=== PATIENT | male | born 1955 | race Caucasian/White ===

== ENCOUNTER 2019-08-01 06:12 | Day surgery (SDC) | payer OTHER ==
[~2019-08-01] VITALS: Ht 160 cm; Wt 75.0 kg
[~2019-08-01 06:12] MED LIST: SODIUM CHLORIDE 0.9% 1,000 ML ONE
[2019-08-01] MEDS ORDERED: ALBUTEROL SULFATE 2.5 MG/0.5 ML NEB SOLUTION NEB ONE (06:13)
[2019-08-01] MEDS ORDERED: LIDOCAINE 4% 50 ML SOLUTION TP ONE (06:13)
[2019-08-01] MEDS ORDERED: LIDOCAINE 2% 30 ML JELLY TP ONE (06:13)
[2019-08-01] MEDS ORDERED: BENZOCAINE 20% 50 MCG/SPRAY 57 GM TP ONE (06:13)
[2019-08-01] MEDS ORDERED: SODIUM CHLORIDE 0.9% 1,000 ML IV ONE (06:30)
[2019-08-01] MEDS ORDERED: TRIA15CR49 TP (06:40)
[2019-08-01] MEDS ORDERED: TROS20TA3 PO (06:40)
[2019-08-01] MEDS ORDERED: OMEP20 PO (06:40)
[2019-08-01] MEDS ORDERED: ATOR10TA84 PO (06:40)
[2019-08-01] MEDS ORDERED: PRED10 PO (06:40)
[2019-08-01] MEDS ORDERED: LOSA50TA37 PO (06:40)
[2019-08-01] MEDS ORDERED: DOCU-275 PO (06:40)
[2019-08-01] MEDS ORDERED: PROCTOCM TP (06:40)
[2019-08-01] MEDS ORDERED: MONT10TA21 PO (06:40)
[2019-08-01] MEDS ORDERED: AMLO-258 PO (06:40)
[2019-08-01] MEDS ORDERED: SUCR1TAB28 PO (06:40)
[2019-08-01] MEDS ORDERED: [UNRECOGNIZED DRUG - CODE] TP (06:40)
[2019-08-01] MEDS ORDERED: FAMO20 PO (06:40)
[2019-08-01] MEDS ORDERED: BECL10.62 IH (06:40)
[2019-08-01] MEDS ORDERED: MIDAZOLAM HCL 2 MG/2 ML VIAL ONE (07:34)
[2019-08-01] MEDS ORDERED: FentaNYL CITRATE-PF 100 MCG/2 ML VIAL ONE (07:34)
[2019-08-01] MEDS ORDERED: MethylPREDNISolone SOD SUCC 125 MG/2 ML VIAL ONE (09:15)
[2019-08-01] MEDS ORDERED: MethylPREDNISolone SOD SUCC 125 MG/2 ML VIAL IVP ONE (09:15)
[2019-08-01] MEDS ORDERED: OXYGEN THERAPY IH SCH (20:00)
== END 2019-08-01 10:40 | disposition home or self-care (01) ==
LOC: SURGERY 06:12
PROVIDERS: ATTEND Internal Medicine Critical Care Medicine
DX: R05 Cough (principal); R04.2 Hemoptysis; J84.9 Interstitial pulmonary disease, unspecified; I10 Essential (primary) hypertension; K21.9 Gastro-esophageal reflux disease without esophagitis; Z11.59 Encounter for screening for other viral diseases; E78.00 Pure hypercholesterolemia, unspecified; N40.0 Benign prostatic hyperplasia without lower urinary tract symptoms; Z79.899 Other long term (current) drug therapy; Z98.52 Vasectomy status
CPT/HCPCS: 31623; 31624; 71045; 87015; 87070; 87101; 87205; 87206; 87220; 87635; 88108; 88312; 93005; J2250; J2930; J3010; J7030; J7613; Z7610